=== PATIENT | female | born 1950 | race Caucasian/White ===

== ENCOUNTER 2017-09-28 00:35 | Emergency (ER) | payer MEDICARE ==
[~2017-09-28] VITALS: Ht 167.6 cm; Wt 104.3 kg
[~2017-09-28 00:35] MED LIST: CALCIUM 600 +1 EAC2 PO; CARTIA XT300 MG PO; DOXYCYCLINE100 M3 PO; GLUCOSAMINE &1 EACH PO; HYDROCHLOROTHIA50 M1 PO; JARDIANCE10 MG PO; KLOR-CON M2020 ME1 PO; METFORMIN1000 MG PO; METOPROLOL TART50 M1 PO; MULTIPLE VITAMI1 T25 PO; PERCOCET 325 MG1 TA5 PO; PRADAXA150 MG PO; PROBIOTIC1 EAC4 PO
[2017-09-28 01:22] LABS: HEMATOCRIT 41.9 % (37.0-47.0); HEMOGLOBIN 13.9 g/dl (12.0-16.0); MEAN CELL VOLUME 86.7 fl (81.0-99.0); MEAN CORPUSCULAR HGB 28.8 pg (27.0-31.0); MEAN CORPUSCULAR HGB CONC 33.2 g/dl (33.0-37.0); MEAN PLATELET VOLUME 9.6 fl (9.6-12.3); PLATELET COUNT AUTOMATED 281 10*3/uL (130-400); RED BLOOD COUNT 4.83 10*6/uL (4.10-5.10); WHITE BLOOD COUNT 8.1 10*3/uL (4.8-10.8)
[2017-09-28 01:42] LABS: BUN 16 mg/dl (7-24); CHLORIDE 100 mmol/L (98-107); CREATININE 1.01 mg/dL (0.55-1.02); POTASSIUM 3.9 mmol/L (3.5-5.1); SODIUM 135 mmol/L (136-145)
[2017-09-28 01:45] LABS: ATYPICAL LYMPHS 6 % (0-0); PLATELET SUFFICIENCY NORMAL (NORMAL); TOTAL CELLS COUNTED 100 #CELLS
[2017-09-28 01:46] LABS: TROPONIN I < 0.015 ng/ml (<0.045)
[2017-09-28] MEDS ORDERED: LEVOFLOXACIN500 MG PO (03:19)
[2017-09-28] MEDS ORDERED: PREDNISONE20 M1 PO (03:19)
== END 2017-09-28 03:41 | disposition home or self-care (01) ==
LOC: ED 00:35
PROVIDERS: Emergency Medicine Emergency Medical Services
DX: J20.9 Acute bronchitis, unspecified (principal); E11.9 Type 2 diabetes mellitus without complications; I48.91 Unspecified atrial fibrillation; Z90.49 Acquired absence of other specified parts of digestive tract; Z79.899 Other long term (current) drug therapy